=== PATIENT | male | born 1935 | race Caucasian/White ===

== ENCOUNTER 2016-05-30 23:18 | Emergency (ER) | payer MEDICARE, OTHER | END 2016-05-31 08:39 | disposition home or self-care (01) | LOC: ER1 23:18 | DX: S01.81XA Laceration without foreign body of other part of head, initial encounter (principal); S61.211A Laceration without foreign body of left index finger without damage to nail, initial encounter; S16.1XXA Strain of muscle, fascia and tendon at neck level, initial encounter; S60.212A Contusion of left wrist, initial encounter; I48.91 Unspecified atrial fibrillation; I10 Essential (primary) hypertension; Z79.01 Long term (current) use of anticoagulants; Z79.899 Other long term (current) drug therapy; V47.6XXA Car passenger injured in collision with fixed or stationary object in traffic accident, initial encounter; Y92.410 Unspecified street and highway as the place of occurrence of the external cause | CPT/HCPCS: 72125; 73110; 73130; 99284 ==

== ENCOUNTER 2021-01-09 18:10 | Emergency (ER) | payer MEDICARE, OTHER ==
[2021-01-09] MEDS ORDERED: PREDNISONE50 MG PO (20:46)
[2021-01-09] MEDS ORDERED: HYDROCREAM28.4 GM TP (20:46)
== END 2021-01-09 20:54 | disposition home or self-care (01) ==
LOC: ER1 18:10
DX: S80.862A Insect bite (nonvenomous), left lower leg, initial encounter (principal); S80.861A Insect bite (nonvenomous), right lower leg, initial encounter; I48.91 Unspecified atrial fibrillation; I10 Essential (primary) hypertension; Z79.01 Long term (current) use of anticoagulants; W57.XXXA Bitten or stung by nonvenomous insect and other nonvenomous arthropods, initial encounter
CPT/HCPCS: 99281

== ENCOUNTER 2021-02-21 07:46 | Emergency (ER) | payer MEDICARE, OTHER ==
[~2021-02-21 07:46] MED LIST: HYDROCREAM28.4 GM TP; PREDNISONE50 MG PO
== END 2021-02-21 10:01 | disposition home or self-care (01) ==
LOC: ER1 07:46
DX: M51.36 Other intervertebral disc degeneration, lumbar region (principal); I10 Essential (primary) hypertension; I48.91 Unspecified atrial fibrillation; Z79.01 Long term (current) use of anticoagulants
CPT/HCPCS: 72100; 73502; 99283